=== PATIENT | female | born 1985 | race American Indian/Alaskan Native ===

== ENCOUNTER 2023-05-23 18:10 | Emergency (ER) | payer OTHER ==
[2023-05-23 18:44] LABS: BASOPHILS # (AUTO) 0.1 10^3/uL (0.0-0.1); BASOPHILS % (AUTO) 0.7 %; EOSINOPHILS # (AUTO) 0.2 10^3/uL (0.0-0.7); EOSINOPHILS % (AUTO) 1.8 %; HCT - HEMATOCRIT 41.5 % (37.0-47.0); HGB - HEMOGLOBIN 13.6 g/dL (12.0-16.0); LYMPHOCYTES % (AUTO) 33.2 %; MEAN CORPUSCULAR HEMOGLOBIN 30.4 pg (27.0-31.0); MEAN CORPUSCULAR HGB CONC 32.8 g/dL (32.0-36.0); MEAN CORPUSCULAR VOLUME 92.6 fL (81.0-99.0); MEAN PLATELET VOLUME 9.9 fL (7.9-10.8); MONOCYTES # (AUTO) 0.5 10^3/uL (0.0-1.0); MONOCYTES % (AUTO) 5.4 %; NEUTROPHILS # (AUTO) 5.2 10^3/uL (1.5-6.6); NEUTROPHILS % (AUTO) 58.4 %; PLT - PLATELET COUNT 317 10^3/uL (130-450); RED BLOOD COUNT 4.48 10^6/uL (4.20-5.40); RED CELL DISTRIBUTION WIDTH 13.2 % (12.0-15.0); WHITE BLOOD COUNT 8.9 x10^3/uL (4.8-10.8)
[2023-05-23 19:07] LABS: ALBUMIN 4.2 g/dL (3.2-5.5); ALBUMIN/GLOBULIN RATIO 1.4 (1.0-2.2); BILIRUBIN,TOTAL 0.3 mg/dL (0.2-1.0); CALCIUM 9.4 mg/dL (8.5-10.3); CREATININE 0.7 mg/dL (0.6-1.3); POTASSIUM 3.9 mmol/L (3.5-4.5); TOTAL PROTEIN 7.1 g/dL (6.4-8.9)
[2023-05-23 20:51] LABS: BILIRUBIN,URINE NEGATIVE (NEGATIVE); GLUCOSE, URINE (UA) NEGATIVE (NEGATIVE); KETONES,URINE (UA) TRACE mg/dL (NEGATIVE); LEUKOCYTE ESTERASE, URINE NEGATIVE (NEGATIVE); NITRITE,URINE NEGATIVE (NEGATIVE); OCCULT BLOOD,URINE LARGE (NEGATIVE); PH,URINE 6.5 PH (5.0-7.5); PROTEIN,URINE NEGATIVE (NEGATIVE); UROBILINOGEN,URINE 1 (NORMAL) E.U./dL (NORMAL)
[2023-05-23 21:00] LABS: CLARITY,URINE CLOUDY (CLEAR)
[2023-05-23 21:03] LABS: BACTERIA,URINE None Seen /HPF (None Seen); RBC,URINE TNTC /HPF (0-5); SQUAMOUS EPITHELIAL CELL,UR FEW Squamous (<= Few)
--- NOTE | 2023-05-23 21:43 | ED Physician Documentation ---
PD HPI ABD PAIN - Stated complaint Stated Complaint: CRAMPING/ - Chief complaint Chief Complaint: Abd Pain - History obtained from History obtained from: Patient (G2 now G3 at approximately 7 weeks had spotting last week and now more cramping and bleeding.) PD PAST MEDICAL HISTORY - Past Medical History Past Medical History: No - Past Surgical History Past Surgical History: No - Present Medications Home Medications: Ambulatory Orders Medication Instructions Recorded Confirmed No Known Home Medications 05/23/23 05/23/23 - Allergies Allergies/Adverse Reactions: Allergies Allergy/AdvReac Type Severity Reaction Status Date / Time No Known Drug Allergies Allergy Verified 05/23/23 18:19 - Social History Does the pt smoke?: No Smoking Status: Never smoker PD ED PE NORMAL - Vitals Vital signs reviewed: Yes - General General: Alert and oriented X 3, No acute distress - Abdomen Abdomen: Soft, Non tender - Derm Derm: Normal color, Warm and dry - Neuro Neuro: Alert and oriented X 3, Normal speech Results - Vitals Vitals: Vital Signs - 24 hr 05/23/23 18:16 Temperature 36.6 C Heart Rate 77 Respiratory 20 Rate Blood Pressure 131/73 H O2 Saturation 96 - Labs Labs: Laboratory Tests 05/23/23 05/23/23 05/23/23 18:37 18:37 18:37 WBC 8.9 RBC 4.48 Hgb 13.6 Hct 41.5 MCV 92.6 MCH 30.4 MCHC 32.8 RDW 13.2 Plt Count 317 MPV 9.9 Neut # (Auto) 5.2 Lymph # (Auto) 3.0 [place] # (Auto) 0.5 Eos # (Auto) 0.2 Baso # (Auto) 0.1 Absolute Nucleated RBC 0.00 Nucleated RBC % 0.0 Sodium 138 Potassium 3.9 Chloride 107 Carbon Dioxide 25 Anion Gap 6.0 BUN 11 Creatinine 0.7 Estimated GFR (MDRD) 95 Glucose 103 Calcium 9.4 Total Bilirubin 0.3 AST 18 ALT 14 Alkaline Phosphatase 80 Total Protein 7.1 Albumin 4.2 Globulin 2.9 Albumin/Globulin Ratio 1.4 Beta HCG, Quant 7773.7 Urine Color Urine Clarity Urine pH Ur Specific [place] Urine Protein Urine Glucose (UA) Urine Ketones Urine Occult Blood Urine Nitrite Urine Bilirubin Urine Urobilinogen Ur Leukocyte Esterase Urine RBC Urine WBC Ur Squamous Epith Cells Urine Bacteria Ur Microscopic Review Urine Culture Comments Blood Type O POSITIVE 05/23/23 19:15 WBC RBC Hgb Hct MCV MCH MCHC RDW Plt Count MPV Neut # (Auto) Lymph # (Auto) [place] # (Auto) Eos # (Auto) Baso # (Auto) Absolute Nucleated RBC Nucleated RBC % Sodium Potassium Chloride Carbon Dioxide Anion Gap BUN Creatinine Estimated GFR (MDRD) Glucose Calcium Total Bilirubin AST ALT Alkaline Phosphatase Total Protein Albumin Globulin Albumin/Globulin Ratio Beta HCG, Quant Urine Color YELLOW Urine Clarity CLOUDY Urine pH 6.5 Ur Specific [place] 1.020 Urine Protein NEGATIVE Urine Glucose (UA) NEGATIVE Urine Ketones TRACE Urine Occult Blood LARGE H Urine Nitrite NEGATIVE Urine Bilirubin NEGATIVE Urine Urobilinogen 1 (NORMAL) Ur Leukocyte Esterase NEGATIVE Urine RBC TNTC H Urine WBC 4-5 Ur Squamous Epith Cells FEW Squamous Urine Bacteria None Seen Ur Microscopic Review INDICATED Urine Culture Comments NOT INDICATED Blood Type - Rads (name of study) OB SONO Relevant Findings:: Prelim report reviewed PD Medical Decision Making - ED course ED course: 37-year-old woman presents with likely in progress. Work-up demonstrates beta-hCG of 7773, normal CBC and CMP, and ultrasound with suggestive of loss with material in the lower uterine segment but no IUP. Also no findings of ectopic. Departure - Departure Disposition: 01 Home, Self Care Clinical Impression: Miscarriage Condition: Good Record reviewed to determine appropriate education?: Yes Instructions: ED Miscarriage Incom Comments: Unfortunately you were seen today for what is looking like a miscarriage in [place], your beta hCG was 7773 and there was some material in the lower uterine segment but no clear but also thankfully no findings of ectopic . [place] and recommend repeat ultrasonography in 1 week to confirm the findings. Return for new or worsening symptoms. For your records, your blood type today was O+.
[2023-05-23 21:49] VITALS: BP 124/72; O2SAT 98
--- NOTE | 2023-05-23 21:50 | Ultrasound Report ---
PROCEDURE: OB First Trimester w/TV INDICATIONS: preg vb OUTSIDE/PRIOR DATING DATA: Last menstrual period (LMP): Unknown. LMP-based estimated date of delivery (BECKA): Unknown. First dating scan (date and location): 05/23/2023. Estimated date of delivery (BECKA) from first dating scan: Not applicable. TECHNIQUE: Real-time scanning was performed of the fetus and maternal pelvic organs, with image documentation. Endovaginal scanning was also performed to better visualize the fetus and maternal ovaries. COMPARISON: None. FINDINGS: There is questionable appearance of a chest uterine gestational sac within the lower uterine segment poorly defined. There is an ill-defined possible crown-rump length measuring 1.3 cm corresponding to 7 weeks 3 days. No pole is identified. No heart tones. Measurement variability in dating: +/- 4 weeks by LMP, +/- 7 days by mean sac diameter (use before 6 weeks gestation if crown-rump length not able to be measured), +/- 5 days by crown-rump length (6-12 weeks gestation). Maternal organs: Ovaries demonstrate corpus luteal cyst IMPRESSION: Ill-defined possible intrauterine gestational sac and crown-rump length appearing to be within the lo wer uterine segment. Findings are suggestive of blighted ovum/ in progress. However, recommen d interval follow-up with clinical and beta hCG level correlation for further evaluation. Reviewed by: Mellissa Jara MD on 05/23/2023 9:49 PM PST Approved by: Mellissa Jara MD on 05/23/2023 9:49 PM PST Station ID: [id number]
== END 2023-05-23 21:51 | disposition home or self-care (01) ==
LOC: ED 18:10
DX: O03.9 Complete or unspecified spontaneous abortion without complication (principal)
CPT/HCPCS: 36415; 80053; 81001; 81003; 84702; 85025; 86900; 86901; 87086; 99283; 99284